=== PATIENT | female | born 1950 | race Caucasian/White ===

== ENCOUNTER 2017-02-17 09:17 | Inpatient (IN) | payer MEDICARE, OTHER ==
--- NOTE | ~2017-02-17 | HP ---
History And Physical [address] [place]. [address] NAME: SHARRON WALTER : 50 STATUS : ADM Tali PAT#: [id number] AGE: 66 ADM/REG DATE : 02/17/17 MR#: [id number] REPORT SERV DATE: 02/17/17 DICTATED BY: MIRA MOLINA DATE: 02/17/17 REPORT STATUS : Draft TRANSCRIBED BY: HOPE DATE: 02/17/17 DATE OF ADMISSION: 02/17/2017 CHIEF COMPLAINT: Confusion. HISTORY OF PRESENT ILLNESS: The patient is a very pleasant 66-year-old white female. She states about a week ago, she noticed a headache, she had it the whole week. Over the weekend, she noticed that she was not quite thinking clearly. Her brother states she had difficulty comprehending information and her speech was normal. She had no focal weakness. Her sensation was intact. 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 Today when they thought she did not understand some simple instructions, they should bring her to the emergency department. She has had no fevers or chills. No other real symptomatology present. She has no history of stroke in the past, but she certainly has risk factors. PAST MEDICAL HISTORY: 1. Hypertension. 2. Yig-szmnqus-tzadkblls diabetes mellitus. 3. Anxiety. 4. Chronic back pain with history of back surgery. 5. Spinal stenosis. 6. Morbid obesity. 7. GALDINO, on CPAP. 8. Osteoarthritis. 9. Recurrent urinary tract infections. 10.Nephrolithiasis. 11.CKD with baseline creatinine around 0.9 to 1.5. PAST SURGICAL HISTORY: 1. Total abdominal hysterectomy. 2. Cholecystectomy. 3. Bilateral total knee arthroplasties. 4. Spine surgery x2. SOCIAL HISTORY: She is . She has no children. She does not drink or smoke. FAMILY HISTORY: Positive for CAD and she has a grandfather who had a stroke. HOME MEDICATIONS: Reviewed and attached. REVIEW OF SYSTEMS: Full 10-point review of systems obtained. Pertinent positives are already mentioned in the HPI. PHYSICAL EXAMINATION: VITAL SIGNS: 167/72 is her blood pressure, temperature 97.9, pulse 60, respiratory rate 19, and sats are 98%. History And Physical [address] [place]. [address] NAME: SHARRON WALTER : 50 STATUS : ADM Tali PAT#: [id number] AGE: 66 ADM/REG DATE : 02/17/17 MR#: [id number] REPORT SERV DATE: 02/17/17 DICTATED BY: MIRA MOLINA DATE: 02/17/17 REPORT STATUS : Draft TRANSCRIBED BY: HOPE DATE: 02/17/17 GENERAL: Morbidly obese white female. HEENT: Normocephalic, atraumatic. Throat is clear. NECK: Supple. Positive gag reflex is present. HEART: Regular rate and rhythm. LUNGS: Distant lung sounds but clear. ABDOMEN: Soft, nontender, ad nondistended. Normoactive bowel sounds are noted. EXTREMITIES: Warm and dry. SKIN: Intact without rash or lesion. NEUROLOGIC: She is alert. She is oriented to person, place, and time. Speech is intact. Cranial nerves 2 through 12 are intact. Strength and tone are 5/5 in all four extremities. She seemed to follow simple instructions with myself and without any difficulty. PSYCHIATRIC: Her mood and affect are appropriate. LAB AND X-RAY: EKG shows sinus rhythm. Brain CT shows recent subacute infarct and evolution involving the left posterior cerebral artery distribution. CBC is essentially normal. Coags are normal. Chemistry panel, BUN and creatinine 19 and 1.22 with a glucose of 160, otherwise normal. Troponin is negative. Urinalysis is negative. ASSESSMENT/PLAN: 1. Subacute CVA. We will place on a tele bed. We will obtain an echocardiogram, MRI and MRA of the brain and neck. Place her on enteric-coated aspirin and Lipitor 80. We will have Neurology see her in consultation. 2. Obesity, needs weight loss. 3. Diabetes mellitus. We will add level 1 sliding scale. Follow up fingerstick blood sugars before meals and at bedtime. Check her A1c. 4. Hypertension. I am going to allow some permissive hypertension given the history of stroke. We will likely adjust her blood pressure medications in the future. I am going to hold her Norvasc overnight and continue her Coreg as her blood pressure will tolerate. 5. History of recurrent urinary tract infections. 6. History of GALDINO on CPAP. Continue her CPAP. 7. CKD stable and at baseline. 8. Deep venous thrombosis prophylaxis with subcu Lovenox. 9. Disposition pending above. KLJ/MODL Mira Molina M.D. / [id number] CC: MD Jayson Lo M.D.
--- NOTE | ~2017-02-17 | CN ---
Consultation Report [facility] [address] [place]. [address] NAME: SHARRON WALTER : 50 STATUS : ADM IN PAT#: [id number] AGE: 66 ADM/REG DATE : 02/18/17 MR#: [id number] REPORT SERV DATE: 02/18/17 DICTATED BY: DATE: REPORT STATUS : Draft TRANSCRIBED BY: MODL DATE: 02/18/17 NEUROLOGY CONSULTATION DATE OF CONSULTATION: 02/18/2017 REASON FOR CONSULT: Headache and stroke. HISTORY OF PRESENT ILLNESS: This is a 66-year-old female who presented to [facility] secondary to headache ongoing for a week, reports the headache is on the top of the head, described the headache only as painful, otherwise, cannot characterize it further. Denies photophobia, phonophobia, nausea, vomiting. Denies similar headache in the past and denies any aggravating or relieving factors. Denies the headache worse with lying down or standing. The patient denies any recent illness, fever, chills, nausea, vomiting, chest pain, or shortness of breath. The patient, over the last 24 hours, was noted to have short- term memory difficulties, particularly with recent memory. Also, for H and P, the patient was noted to have difficulties with memory as well as confusion over the weekend that is two to three days ago. The patient was noted by brother to have difficulty comprehending, but otherwise no dysarthria. The patient still denies any dysarthria or language difficulties and denies any focal weakness. The patient at baseline, ambulates with a walker and denies any worsening ambulation. Patient denies any changes in medication and denies any other complaints. PAST MEDICAL HISTORY: Significant for hypertension, diabetes, anxiety, chronic back pain with a history of lower back surgery, spinal stenosis, morbid obesity, obstructive sleep apnea, and osteoarthritis. The patient does have a history of recurrent urinary tract infection as well as chronic kidney disease. SOCIAL HISTORY: Denies tobacco, alcohol, or recreational drug usage. FAMILY HISTORY: Significant for stroke and coronary artery disease. REVIEW OF SYSTEMS: Negative except for those mentioned in the HPI. ALLERGIES: THE PATIENT REPORTS ALLERGY TO SULFA WELL ADHESIVE BANDAGE. MEDICATIONS: The patient denies daily aspirin usage. The patient does take some aspirin as needed for headache. The patient takes medications at home including Norvasc, Coreg, Prozac, metformin, and Afrin nasal spray. PHYSICAL EXAMINATION: VITAL SIGNS: Overnight, the patient was noted to have vital signs with T-max of 99.6, heart rates of 51 to 63, respirations of 14 to 18, and blood pressure of 143 to 194 over 65 to 81. GENERAL: The patient is well developed, well nourished, in no acute distress. CARDIOVASCULAR: Regular rate and rhythm. No carotid bruit was otherwise auscultated. Consultation Report [place] [id number] [place]. [address] NAME: SHARRON WALTER : 50 STATUS : ADM IN PAT#: [id number] AGE: 66 ADM/REG DATE : 02/18/17 MR#: [id number] REPORT SERV DATE: 02/18/17 DICTATED BY: DATE: REPORT STATUS : Draft TRANSCRIBED BY: MODAurelia DATE: 02/18/17 PULMONARY: Clear to auscultation bilaterally. NEUROLOGICAL: Generally, the patient is alert and oriented to person, place, and month, but mildly disoriented regarding year, follows simple and two-step commands. Registers 3/3 items, but is unable to recall any of the three items. The patient despite multiple choices or category cues, was still not able to recall items. The patient otherwise was noted to have no dysarthria or aphasia at the time of evaluation and was noted to be able to follow simple and two-step commands at the time of evaluation. Cranial nerves 2 through 12: Pupils equal, round, and reactive to light. Horizontal and vertical eye movement was noted to be intact. The patient was noted to have right visual field and hemianopsia at the time of evaluation, was noted to have intact left visual field. Reports symmetrical facial sensation, symmetrical facial expression. Midline tongue. Normal palatal movement. Mild decreased hearing in bilateral ears was noted. The patient demonstrated 5/5 bilateral upper and lower extremity strength with normal muscle, bulk, and tone. The patient does demonstrate normal utykll-fp-znua examination without ataxia. 1+ reflexes throughout. Upgoing toe on the left plantar reflex. Downgoing toe on the right plantar reflex where the patient noted to have mildly wide-based gait at the time of evaluation. Reports symmetrical sensation bilaterally. LABORATORY STUDIES: Demonstrated white blood cell count of 7.5, hemoglobin of 12.6, hematocrit of 38.2, and platelet count of 201. Chemistry panel: Sodium of 138, potassium 4.0, chloride 107, bicarb 26, BUN of 19, creatinine 1.22, glucose of 160, calcium of 8.3, magnesium 1.6. Serum cholesterol 158, HDL 43, LDL of 90, triglyceride 125. Hemoglobin A1c is 6.9. Urinalysis demonstrated negative leukocyte esterase, negative nitrite. CT scan of the brain demonstrated hypoattenuation in the left LICENSED WEIGHER area concerning for acute versus subacute stroke with MRI of the brain demonstrated left LICENSED WEIGHER occlusion as well as left LICENSED WEIGHER stroke. Mild hemorrhage was associated with the left LICENSED WEIGHER stroke. MRA of the neck otherwise demonstrated no significant stenosis in the vertebral artery and no significant stenosis in bilateral internal carotid artery. Echocardiogram is pending. IMPRESSION: 1. Left posterior cerebral artery stroke with mild hemorrhagic conversion noted on the MRI of the brain without contrast. We will hold aspirin and Lovenox for now secondary to the mild hemorrhage. Etiology of the stroke is otherwise unclear. The patient does have a history of diabetes, but appeared to be well controlled with a hemoglobin A1c of 6.9. The patient, in addition, was also noted to have fasting lipid panel performed with LDL of 90, concern for possible embolic etiology. We will check echocardiogram. If no significant source was found. We will proceed with transesophageal echocardiogram as well as possible loop recorder. Meanwhile, the patient was also noted to have possible vascular dementia secondary to a recent stroke. 2. Headache. We will start the patient on Depakote 125 mg IV b.i.d. RECOMMENDATION: 1. Depakote 125 mg IV b.i.d. Consultation Report [address] [address] NAME: SHARRON WALTER JAM : 50 STATUS : ADM IN [facility]#: [id number] AGE: 66 ADM/REG DATE : 02/18/17 MR#: [id number] REPORT SERV DATE: 02/18/17 DICTATED BY: DATE: REPORT STATUS : Draft TRANSCRIBED BY: HOPE DATE: 02/18/17 2. Hold aspirin and Lovenox secondary to mild hemorrhagic conversion. 3. Echocardiogram pending. 4. Lipitor 80 mg p.o. at bedtime. 5. May need SASHA and loop recorder, pending echocardiogram results. [facility]/MODL Harvinder Talavera MD / [id number] CC: Patricia Clemente M.D.
--- NOTE | ~2017-02-17 | DS ---
Discharge Summary [place] [id number] [place]. [address] NAME: SHARRON WALTER : 50 STATUS : DIS IN PAT#: [id number] AGE: 66 ADM/REG DATE : 02/18/17 MR#: [id number] REPORT SERV DATE: 02/22/17 DICTATED BY: COBY BARRIOS DATE: 02/22/17 REPORT STATUS : Draft TRANSCRIBED BY: MODL DATE: 02/22/17 ADMISSION DATE: 02/18/2017 DISCHARGE DATE: 02/22/2017 DIAGNOSES ON ADMISSION: 1. Subacute cerebrovascular accident. 2. Obesity. 3. Diabetes mellitus. 4. History of recurrent urinary tract infections. 5. History of obstructive sleep apnea, on CPAP. 6. Chronic kidney disease, stable at baseline. DIAGNOSES ON DISCHARGE: 1. Subacute cerebrovascular accident in the left posterior cerebral artery territory with mild hemorrhagic conversion on the MRI, stable. 2. Headache, present on admission, resolved. 3. Hypertension, controlled. 4. Chronic kidney disease with creatinine being at baseline. 5. Diabetes, controlled. 6. Status post loop recorder insertion. 7. Negative transesophageal echocardiogram. 8. Dementia. CONSULTANTS ON THE CASE: Neurologist, Dr. Jo Talavera; dam tender, Dr. Almeida; and also, Dr. Marroquin for loop recorder placement. IMAGING STUDIES DONE DURING THIS HOSPITALIZATION: MRI of the brain on 02/17/2017, partially hemorrhagic large acute left MANAGER STERILE infarction. There is also some involvement, subtle, of the left thalamic body, not appreciated on the CT scan. Echocardiography done on 02/18/2017 showed left ventricular systolic function intact at 54%, left ventricle diastolic function intact. No significant valvular dysfunction. Transesophageal echocardiogram did not show any clots, was normal also. Chest x-ray looked clear. HISTORY OF PRESENT ILLNESS: Briefly, this is a very pleasant 66-year-old female who was admitted by my colleague, Dr. Isha Villalta for stroke. For further details, see history of present illness dictated by Dr. Villalta. HOSPITAL COURSE: Briefly, the patient was having stroke and she had some confusion and memory problems. She was evaluated by neurologist, Dr. Talavera, who recommended transesophageal echocardiogram to find out the source of stroke. Transesophageal echocardiogram came back normal and loop recorder insertion was also recommended to monitor her heart rhythm and loop recorder insertion was done also during this hospitalization. In the same time, the patient had hemorrhagic transformation to her stroke, so she was not on Discharge Summary [place] [address] [place]. [address] NAME: SHARRON WALTER : 50 STATUS : DIS IN PAT#: [id number] AGE: 66 ADM/REG DATE : 02/18/17 MR#: [id number] REPORT SERV DATE: 02/22/17 DICTATED BY: COBY BARRIOS DATE: 02/22/17 REPORT STATUS : Draft TRANSCRIBED BY: HOPE DATE: 02/22/17 any aspirin or any other blood thinners. She was doing okay with memory problems. She was started also on Aricept since dementia was also present on this patient. The patient's chronic kidney disease was at the baseline. On discharge, her creatinine was 1.39 which is her baseline. She was doing well, so she was discharged home with home health. She was recommended to continue carvedilol 12.5 p.o. b.i.d., Prozac 20 mg daily, Lipitor 80 mg daily, Aricept 5 mg daily, trazodone 100 mg at bedtime, metformin 500 mg p.o. b.i.d., Norvasc 5 mg a day, Afrin nasal spray daily. The patient was recommended to follow up with her primary care physician, Dr. Jayson Taylor in a week. Also, I spoke with the patient and I spoke specifically with her daughter and I explained to them that the patient now is started on Lipitor 80 mg a day and I explained them that Lipitor sometimes can cause side effects such as muscular pain, and I told them if this will happen, they need to seek medical attention immediately and hold that medicine; as well as I told them as a routine workup, every patient who is started on the Lipitor, they need to have their liver enzymes checked in four weeks and I recommended to check liver enzymes per the primary care physician, Dr. Jayson Taylor. Also, Aricept prescription 5 mg a was given by Dr. Talavera. The patient was not recommended to be on aspirin. Dr. Talavera recommended the patient to start a baby aspirin in two weeks. This was told to the patient's daughter. Also, they need to follow up with [facility] outpatient in two to three weeks. They also need to follow up with dam tender, Dr. Almeida and also the Cardiology Lab to check the loop recorder. They have a followup appointment scheduled. The patient was discharged in stable condition. DISCHARGE MEDICATIONS: Carvedilol 12.5 p.o. b.i.d., Lipitor 80 mg daily, Aricept 5 mg daily, Prozac 20 mg daily, trazodone 100 mg at bedtime, metformin 500 mg p.o. b.i.d., Norvasc 5 mg p.o. daily, and Afrin nasal spray daily. The patient was discharged in stable condition. Everything was discussed with the patient and her daughter. She went home with home health. I spent 45 minutes on discharge. DICTATED BY: Patricia Clemente/HOPE Coby Barrios M.D. / [id number] CC: Patricia Clemente M.D. Lisa Gail Carkner, M.D.
--- NOTE | ~2017-02-17 | CN ---
Consultation Report [place] [id number] [facility] [place]. [address] NAME: SHARRON ROWELL : 50 STATUS : ADM IN PAT#: [id number] AGE: 66 ADM/REG DATE : 02/18/17 MR#: [id number] REPORT SERV DATE: 02/20/17 DICTATED BY: DATE: REPORT STATUS : Draft TRANSCRIBED BY: MODL DATE: 02/19/17 CONSULTATION DATE OF CONSULTATION: 02/19/2017 CHIEF COMPLAINT/REASON FOR CONSULT: History of CVA, possible SASHA, and loop recorder placement. HISTORY OF PRESENT ILLNESS: Mrs. Rowell is a very pleasant 66-year-old female who was admitted on 02/17/2017 for evaluation of possible CVA. She was diagnosed with a left LEAD ENTERPRISE ARCHITECT stroke with mild hemorrhagic conversion and request is being made to consider transesophageal echocardiogram and loop recorder placement. Neurologic, the patient's main symptoms were headache. She stated that this started possibly a few days prior to admission but endorses that she does not have a good memory. She has also noted confusion and difficulty with comprehension. Family members endorse that she has been mildly confused. She states that she has never been diagnosed with a stroke before. She does not note any history of heart disease or arrhythmia. She specifically denies a history of atrial fibrillation. She denies chest pain or shortness of breath. PAST MEDICAL HISTORY: 1. Hypertension. 2. Diabetes mellitus. 3. Obstructive sleep apnea. 4. Chronic pain disorder. 5. Spinal stenosis. 6. Morbid obesity. 7. Osteoarthritis, status post knee arthroplasty. SOCIAL HISTORY: The patient lives with her sister. She does not smoke, drink, or use extracurricular drugs. FAMILY HISTORY: Significant for mother with a history of congestive heart failure. Her father of an [employer]. Her brother with a history of coronary artery disease. MEDICATIONS: Current inpatient medications include: 1. Atorvastatin 80 mg p.o. daily. 2. Carvedilol 12.5 mg p.o. b.i.d. 3. Fluoxetine. 4. Trazodone. 5. Valproic acid. 6. Metformin. ALLERGIES: SULFA AND ADHESIVE BANDAGES. Consultation Report [place] [id number] [facility] [place]. [address] NAME: SHARRON ROWELL : 50 STATUS : ADM IN PAT#: [id number] AGE: 66 ADM/REG DATE : 02/18/17 MR#: [id number] REPORT SERV DATE: 02/20/17 DICTATED BY: DATE: REPORT STATUS : Draft TRANSCRIBED BY: MODL DATE: 02/19/17 REVIEW OF SYSTEMS: All systems were reviewed and is negative except for dictated in HPI. PHYSICAL EXAMINATION: VITAL SIGNS: T-max 100.7, pulses range between 57 and 99 beats per minute, oxygen saturations 98% on room air, and blood pressures range between 147/56 to 173/89. GENERAL: Mrs. Rowell is a chronically ill-appearing 66-year-old female who appears older than her stated age. NECK: I could not appreciate jugular venous distention or carotid bruits. HEART: Regular rate and rhythm. Soft S1, S2. I could not appreciate murmurs, rubs, or gallops. ABDOMEN: Obese. I could not appreciate hepatosplenomegaly due to body habitus. EXTREMITIES: I could not appreciate femoral pulses due to body habitus. EXTREMITIES: Warm and well perfused. I could not appreciate pitting edema. NEUROLOGIC: I could not appreciate focal neurologic deficit, although the patient endorses memory loss. MUSCULOSKELETAL: No clubbing or cyanosis of the digits. DATA: MRI of the brain and neck demonstrated cut-off with a left LEAD ENTERPRISE ARCHITECT consistent with acute embolus as well as acute infarction. An MRI of the neck demonstrated that the carotid and vertebral arteries were stenosed. There was a questionable high-grade stenosis to the proximal left subclavian artery. Echocardiogram demonstrated normal left ventricular systolic function with an ejection fraction between 50% to 55%. No evidence of intracardiac thrombus. Laboratory results note a sodium of 137, a potassium of 3.6, a BUN of 24, creatinine of 1.36, a glucose of 171. Cardiac enzymes are negative x3. Hemoglobin A1c is 6.9, hemoglobin 11.8, hematocrit 35.6, and platelet count is 198. White blood cell count is 7.1. An EKG performed post admission demonstrated sinus bradycardia at 57 beats per minute. EKG performed on admission documented normal sinus rhythm at 69 beats per minute. It was a poor quality study. There were no ischemic ST-T segment changes. IMPRESSION REPORT AND PLAN: 1. Acute left posterior cerebral artery stroke. 2. Hypertension. 3. Diabetes mellitus. 4. Morbid obesity. 5. Chronic kidney disease. RECOMMENDATIONS: 1. At the request of Neurology, we would keep n.p.o. after midnight for SASHA and loop recorder. There are no current cardiac contraindications to this. 2. Would restart aspirin when it is safe from a neurologic standpoint. 3. Would consider RACHID inhibitor for better control of her hypertension after renal insufficiency involves. 4. Continue high-intensity statin for primary cardiac prevention. Consultation Report [place] [address] [facility] [address] NAME: SHARRON ROWELL JAM : 50 STATUS : ADM IN PAT#: [id number] AGE: 66 ADM/REG DATE : 02/18/17 MR#: [id number] REPORT SERV DATE: 02/20/17 DICTATED BY: DATE: REPORT STATUS : Draft TRANSCRIBED BY: HOPE DATE: 02/19/17 5. Additional recommendations pending clinical course. [facility]/HOPE Monica Almeida M.D. / [id number] CC: Patricia Clemente M.D.
--- NOTE | ~2017-02-17 | OP ---
Record Of Operation [facility] [address] [facility] [address] NAME: SHARRON WALTER : 50 STATUS : [facility] [id number] AGE: 66 ADM/REG DATE : 02/18/17 MR#: [id number] REPORT SERV DATE: 02/20/17 DICTATED BY: NARAYAN MIGUEL DATE: 02/20/17 REPORT STATUS : Draft TRANSCRIBED BY: MODL DATE: 02/20/17 DATE OF PROCEDURE: 02/20/2017 REASON FOR PROCEDURE: CVA. PROCEDURE TYPE: Elective SASHA. REFERRING PROVIDER: Dr. Monica Almeida. PROCEDURE DESCRIPTION: All questions were answered and an informed consent was obtained. Anesthesia sedated the patient. Upon successful sedation, the transesophageal probe was inserted without complication. Salient echocardiographic findings are detailed below. The patient tolerated the procedure well and there were no complications. ECHOCARDIOGRAPHIC SUMMARY: 1. Normal LV size and systolic function, with an estimated ejection fraction of 55% to 60%. 2. Normal right ventricular size and function. 3. Color Doppler demonstrates trace tricuspid regurgitation, mild mitral regurgitation, and trace pulmonic regurgitation. 4. Morphologically normal valves, without evidence of endocarditis. 5. Bubble study negative for ASD or PFO. 6. No evidence of left ventricular or right ventricular thrombus with Definity contrast injection. [facility]/HOPE Narayan Miguel MD / [id number] CC: Patricia Clemente M.D.
[2017-02-17 08:36] LABS: ASCORBIC ACID (UR NOT ORDER) NEG (NEG); BILIRUBIN, URINE NEGATIVE (NEG); ER URINALYSIS TAT 0 Hrs 00 Mins; KETONE, URINE NEGATIVE (NEG); LEUKOCYTE ESTERASE(NOT OR NEG (NEG); NITRITE (URINE) NEG (NEG); WBC (NOT ORDERED) (RFLEX) < 1 (0-5)
[~2017-02-17 09:17] MED LIST: ACTOS45 PO; AMARYL4 PO; ASAB PO; ATV.5 PO; C5 PO; COREG6 PO; GLUCOPHXR7 PO; L20 PO; LISINOPRIL40 MG PO; MAGOX4 PO; METHOC750B PO; MOBIC15 MG PO; NABUMETONE750 MG PO; NORCO1 TAB PO; NORV5 PO; OXYCON10 PO; PCET PO; POTASSIUM; PROZ10 PO; PROZAC PO; V2 PO
[2017-02-17 10:32] LABS: BASOPHILS 0.3 %; BASOPHILS ABSOLUTE 0.02 10/3/uL (0.0-0.16); EOSINOPHILS 3.9 %; EOSINOPHILS ABSOLUTE 0.29 10/3/uL (0.0-0.53); IMMATURE GRANULOCYTES 0.3 %; IMMATURE GRANULOCYTES ABSOLUTE 0.02 10/3/uL (0.0-0.11); LYMPHOCYTES 21.7 %; LYMPHOCYTES ABSOLUTE 1.62 10/3/uL (0.67-4.30); MEAN CORPUSCULAR HEMOGLOB 30.4 pg (26.0-34.0); MEAN CORPUSCULAR VOLUME 92.3 fL (80-100); MEAN PLATELET VOLUME 9.9 fL (9.2-13.0); MONOCYTES 5.8 %; MONOCYTES ABSOLUTE 0.43 10/3/uL (0.21-1.20); NEUTROPHILS ABSOLUTE 5.07 10/3/uL (2.02-8.40); PLATELET COUNT 201 10/3/uL (150-400); RBC DISTRIBUTION WIDTH 13.4 % (12.0-16.0); WHITE BLOOD CELLS 7.5 10/3/uL (4.5-10.5)
[2017-02-17 10:34] LABS: HEMATOCRIT 38.2 % (36.0-48.0); HEMOGLOBIN 12.6 g/dL (12.0-16.0); MANUAL DIFF NO %; RED CELL COUNT 4.14 10/6/uL (4.0-5.6)
[2017-02-17 10:49] LABS: PARTIAL THROMBO TIME 25.2 SEC (22.5-37.2)
[2017-02-17 10:50] LABS: BUN (BLOOD UREA NITROGEN) 19 MG/DL (6-23); CALCIUM, SERUM 8.3 MG/DL (8.5-10.4); CHEST PAIN PROFILE TAT 0 Hrs 24 Mins; CHLORIDE, SERUM 107 MMOL/L (96-112); CO2 (CARBON DIOXIDE) 26 MMOL/L (24-34); CREATININE 1.22 MG/DL (0.55-1.02); GFR AFRICAN AMERICAN 53 ML/MIN (>=60); GFR NON AFRICAN AMERICAN 46 ML/MIN (>=60); GLUCOSE, SERUM 160 MG/DL (60-99); INTERNATIONAL NORMAL RATI 1.2 UNITS (-); PROTIME (NOT ORD) 14.7 SEC (12.0-14.5); SODIUM, SERUM 138 MMOL/L (135-148); TROPONIN I <0.02 NG/ML (<0.05)
[2017-02-17] MEDS ORDERED: COREG6 PO (11:44)
[2017-02-17] MEDS ORDERED: PROZAC PO (11:44)
[2017-02-17] MEDS ORDERED: NORV5 PO (11:44)
[2017-02-17] MEDS ORDERED: GLUCPH PO (11:51)
[2017-02-17] MEDS ORDERED: COREG12 PO (11:53)
[2017-02-17] MEDS ORDERED: TRAZODONE (11:54)
[2017-02-17] MEDS ORDERED: *UNABLE1 (11:55)
[2017-02-17] MEDS ORDERED: AFRIN15 NAS (11:56)
[2017-02-17] MEDS ORDERED: NERVE MEDICATION (12:03)
[2017-02-17 14:57] LABS: CHOL/HDL RATIO(NOT ORDER) 3.7 (0-5); CHOLESTEROL 158 MG/DL (< 200); HDL CHOLESTEROL 43 MG/DL (> 49); LDL CHOLESTEROL 90 MG/DL (< 130); NON-HDL CHOLESTEROL 115 MG/DL (< 160); TRIGLYCERIDE 125 MG/DL (< 150); TROPONIN I <0.02 NG/ML (<0.05)
[2017-02-18 10:56] LABS: BASOPHILS 0.3 %; BASOPHILS ABSOLUTE 0.02 10/3/uL (0.0-0.16); EOSINOPHILS 2.5 %; EOSINOPHILS ABSOLUTE 0.15 10/3/uL (0.0-0.53); HEMATOCRIT 36.2 % (36.0-48.0); HEMOGLOBIN 11.9 g/dL (12.0-16.0); IMMATURE GRANULOCYTES 0.2 %; IMMATURE GRANULOCYTES ABSOLUTE 0.01 10/3/uL (0.0-0.11); LYMPHOCYTES 21.8 %; LYMPHOCYTES ABSOLUTE 1.33 10/3/uL (0.67-4.30); MANUAL DIFF NO %; MEAN CORPUS HGB CONC 32.9 g/dL (32.0-36.0); MEAN CORPUSCULAR HEMOGLOB 29.8 pg (26.0-34.0); MEAN CORPUSCULAR VOLUME 90.5 fL (80-100); MEAN PLATELET VOLUME 10.1 fL (9.2-13.0); MONOCYTES 7.2 %; MONOCYTES ABSOLUTE 0.44 10/3/uL (0.21-1.20); NEUTROPHILS ABSOLUTE 4.16 10/3/uL (2.02-8.40); PLATELET COUNT 225 10/3/uL (150-400); RBC DISTRIBUTION WIDTH 13.3 % (12.0-16.0); WHITE BLOOD CELLS 6.1 10/3/uL (4.5-10.5)
[2017-02-18 11:04] LABS: INTERNATIONAL NORMAL RATI 1.2 UNITS (-); PROTIME (NOT ORD) 15.2 SEC (12.0-14.5)
[2017-02-18 11:05] LABS: PARTIAL THROMBO TIME 27.4 SEC (22.5-37.2)
[2017-02-18 11:13] LABS: TROPONIN I <0.02 NG/ML (<0.05)
[2017-02-18] MEDS ORDERED: TRAZ100 PO (12:07)
[2017-02-18 13:39] LABS: FOLATE 19.2 NG/ML (>5.2)
[2017-02-19 05:58] LABS: BASOPHILS 0.3 %; BASOPHILS ABSOLUTE 0.02 10/3/uL (0.0-0.16); EOSINOPHILS 4.7 %; EOSINOPHILS ABSOLUTE 0.33 10/3/uL (0.0-0.53); HEMATOCRIT 35.6 % (36.0-48.0); HEMOGLOBIN 11.8 g/dL (12.0-16.0); IMMATURE GRANULOCYTES 0.1 %; IMMATURE GRANULOCYTES ABSOLUTE 0.01 10/3/uL (0.0-0.11); LYMPHOCYTES 26.8 %; LYMPHOCYTES ABSOLUTE 1.89 10/3/uL (0.67-4.30); MANUAL DIFF NO %; MEAN CORPUS HGB CONC 33.1 g/dL (32.0-36.0); MEAN CORPUSCULAR HEMOGLOB 30.3 pg (26.0-34.0); MEAN CORPUSCULAR VOLUME 91.3 fL (80-100); MONOCYTES 9.8 %; MONOCYTES ABSOLUTE 0.69 10/3/uL (0.21-1.20); NEUTROPHILS 58.3 %; NEUTROPHILS ABSOLUTE 4.12 10/3/uL (2.02-8.40); PLATELET COUNT 198 10/3/uL (150-400); RBC DISTRIBUTION WIDTH 13.3 % (12.0-16.0); WHITE BLOOD CELLS 7.1 10/3/uL (4.5-10.5)
[2017-02-19 06:12] LABS: CALCIUM, SERUM 8.6 MG/DL (8.5-10.4); CHLORIDE, SERUM 102 MMOL/L (96-112); CO2 (CARBON DIOXIDE) 27 MMOL/L (24-34); CREATININE 1.36 MG/DL (0.55-1.02); GFR AFRICAN AMERICAN 47 ML/MIN (>=60); GFR NON AFRICAN AMERICAN 40 ML/MIN (>=60); GLUCOSE, SERUM 171 MG/DL (60-99); POTASSIUM, SERUM 3.6 MMOL/L (3.5-5.3); SODIUM, SERUM 137 MMOL/L (135-148)
[2017-02-19 06:13] LABS: BUN (BLOOD UREA NITROGEN) 24 MG/DL (6-23)
[2017-02-20 09:03] LABS: BASOPHILS 0.3 %; BASOPHILS ABSOLUTE 0.02 10/3/uL (0.0-0.16); EOSINOPHILS 5.4 %; EOSINOPHILS ABSOLUTE 0.38 10/3/uL (0.0-0.53); HEMATOCRIT 35.4 % (36.0-48.0); HEMOGLOBIN 12.1 g/dL (12.0-16.0); IMMATURE GRANULOCYTES 0.3 %; IMMATURE GRANULOCYTES ABSOLUTE 0.02 10/3/uL (0.0-0.11); LYMPHOCYTES 19.8 %; MEAN CORPUS HGB CONC 34.2 g/dL (32.0-36.0); MEAN CORPUSCULAR HEMOGLOB 30.2 pg (26.0-34.0); MEAN PLATELET VOLUME 10.8 fL (9.2-13.0); MONOCYTES 7.9 %; MONOCYTES ABSOLUTE 0.56 10/3/uL (0.21-1.20); NEUTROPHILS 66.3 %; NEUTROPHILS ABSOLUTE 4.68 10/3/uL (2.02-8.40); RBC DISTRIBUTION WIDTH 13.1 % (12.0-16.0); RED CELL COUNT 4.01 10/6/uL (4.0-5.6); WHITE BLOOD CELLS 7.1 10/3/uL (4.5-10.5)
[2017-02-20 09:04] LABS: MANUAL DIFF NO %; MEAN CORPUSCULAR VOLUME 88.3 fL (80-100); PLATELET COUNT 206 10/3/uL (150-400)
[2017-02-20 09:17] LABS: CALCIUM, SERUM 8.7 MG/DL (8.5-10.4); CHLORIDE, SERUM 108 MMOL/L (96-112); CREATININE 1.28 MG/DL (0.55-1.02); GFR AFRICAN AMERICAN 50 ML/MIN (>=60); GFR NON AFRICAN AMERICAN 44 ML/MIN (>=60); GLUCOSE, SERUM 162 MG/DL (60-99); SODIUM, SERUM 142 MMOL/L (135-148)
[2017-02-20 09:23] LABS: BUN (BLOOD UREA NITROGEN) 29 MG/DL (6-23); CO2 (CARBON DIOXIDE) 21 MMOL/L (24-34); POTASSIUM, SERUM 5.4 MMOL/L (3.5-5.3)
[2017-02-20 10:50] LABS: INTERNATIONAL NORMAL RATI 1.2 UNITS (-); PROTIME (NOT ORD) 14.9 SEC (12.0-14.5)
[2017-02-21 05:43] LABS: BASOPHILS 0.3 %; BASOPHILS ABSOLUTE 0.02 10/3/uL (0.0-0.16); EOSINOPHILS 6.9 %; EOSINOPHILS ABSOLUTE 0.43 10/3/uL (0.0-0.53); HEMATOCRIT 35.1 % (36.0-48.0); HEMOGLOBIN 11.6 g/dL (12.0-16.0); IMMATURE GRANULOCYTES 0.3 %; IMMATURE GRANULOCYTES ABSOLUTE 0.02 10/3/uL (0.0-0.11); LYMPHOCYTES 23.5 %; LYMPHOCYTES ABSOLUTE 1.46 10/3/uL (0.67-4.30); MEAN CORPUSCULAR HEMOGLOB 30.1 pg (26.0-34.0); MEAN CORPUSCULAR VOLUME 90.9 fL (80-100); MEAN PLATELET VOLUME 10.3 fL (9.2-13.0); MONOCYTES 7.6 %; MONOCYTES ABSOLUTE 0.47 10/3/uL (0.21-1.20); NEUTROPHILS 61.4 %; PLATELET COUNT 188 10/3/uL (150-400); RBC DISTRIBUTION WIDTH 13.3 % (12.0-16.0); RED CELL COUNT 3.86 10/6/uL (4.0-5.6); WHITE BLOOD CELLS 6.2 10/3/uL (4.5-10.5)
[2017-02-21 05:45] LABS: INTERNATIONAL NORMAL RATI 1.2 UNITS (-)
[2017-02-21 05:47] LABS: MANUAL DIFF NO %
[2017-02-21 05:49] LABS: BUN (BLOOD UREA NITROGEN) 32 MG/DL (6-23); CALCIUM, SERUM 8.3 MG/DL (8.5-10.4); CHLORIDE, SERUM 104 MMOL/L (96-112); CO2 (CARBON DIOXIDE) 26 MMOL/L (24-34); CREATININE 1.54 MG/DL (0.55-1.02); GFR AFRICAN AMERICAN 40 ML/MIN (>=60); GFR NON AFRICAN AMERICAN 35 ML/MIN (>=60); GLUCOSE, SERUM 168 MG/DL (60-99); SODIUM, SERUM 137 MMOL/L (135-148)
[2017-02-22 08:29] LABS: BUN (BLOOD UREA NITROGEN) 31 MG/DL (6-23); CALCIUM, SERUM 8.5 MG/DL (8.5-10.4); CHLORIDE, SERUM 103 MMOL/L (96-112); CO2 (CARBON DIOXIDE) 28 MMOL/L (24-34); CREATININE 1.39 MG/DL (0.55-1.02); GFR AFRICAN AMERICAN 46 ML/MIN (>=60); GFR NON AFRICAN AMERICAN 39 ML/MIN (>=60); GLUCOSE, SERUM 162 MG/DL (60-99); POTASSIUM, SERUM 4.5 MMOL/L (3.5-5.3); SODIUM, SERUM 138 MMOL/L (135-148)
[2017-02-22] MEDS ORDERED: LIPITOR80 MG PO (12:40)
[2017-02-22] MEDS ORDERED: ARICEPT5 PO (12:41)
[2017-02-22] MEDS ORDERED: ULTRAM50 PO (12:42)
== END 2017-02-22 15:48 | disposition home health service (06) | DRG 41 ==
LOC: ER 09:17 → 2SO 11:46
PROVIDERS: Emergency Medicine; Hospitalist; Internal Medicine; Psychiatry & Neurology Neurology; Student in an Organized Health Care Education/Training Program
PROC: B246ZZ4 Ultrasonography of Right and Left Heart, Transesophageal (ICD-10-PCS; principal; 2017-02-20)
PROC: 0JH632Z Insertion of Monitoring Device into Chest Subcutaneous Tissue and Fascia, Percutaneous Approach (ICD-10-PCS; 2017-02-21)
DX: I62.9 Nontraumatic intracranial hemorrhage, unspecified (principal); Z68.43 Body mass index [BMI] 50.0-59.9, adult; E11.22 Type 2 diabetes mellitus with diabetic chronic kidney disease; Z99.81 Dependence on supplemental oxygen; F01.50 Vascular dementia, unspecified severity, without behavioral disturbance, psychotic disturbance, mood disturbance, and anxiety; F41.9 Anxiety disorder, unspecified; E66.01 Morbid (severe) obesity due to excess calories; G47.33 Obstructive sleep apnea (adult) (pediatric); M19.90 Unspecified osteoarthritis, unspecified site; N18.3 Chronic kidney disease, stage 3 (moderate); I12.9 Hypertensive chronic kidney disease with stage 1 through stage 4 chronic kidney disease, or unspecified chronic kidney disease; G89.29 Other chronic pain; M54.9 Dorsalgia, unspecified; R51 Headache; I34.0 Nonrheumatic mitral (valve) insufficiency; M48.00 Spinal stenosis, site unspecified; Z88.2 Allergy status to sulfonamides; Z98.890 Other specified postprocedural states; Z82.49 Family history of ischemic heart disease and other diseases of the circulatory system; Z82.3 Family history of stroke; Z87.442 Personal history of urinary calculi
CPT/HCPCS: 33282; 70450; 70544; 70548; 70551-52; 71020; 80048; 80061; 81001; 82607; 82746; 82962; 83036; 83735; 84132; 84484; 85025; 85610; 85730; 93005; 93306; 93312; 93320; 93325; 97116-GP; 97161-GP; 99284; A9270-GY; A9577; C1764; G8978-CK-GP; G8979-CJ-GP; J0690; J1885; Q9957